=== PATIENT | female | born 1995 | race Caucasian/White ===

== ENCOUNTER 2024-12-11 10:22 | Outpatient (CLI) | payer OTHER, SELFPAY | END 2024-12-11 10:23 | disposition home or self-care (01) | LOC: NFLDUCREF 10:24 | PROVIDERS: Visit Provider Nurse Practitioner Family | DX: R10.84 Generalized abdominal pain (principal); R82.90 Unspecified abnormal findings in urine | CPT/HCPCS: 87086 ==